=== PATIENT | female | born 1965 | race Caucasian/White ===

== ENCOUNTER 2021-02-03 14:30 | Outpatient (REF) | payer OTHER, SELFPAY | END 2021-02-03 14:31 | disposition home or self-care (01) | LOC: HO.HMGCLDS 14:30 | PROVIDERS: PCP Family Medicine; Visit Provider Family Medicine | DX: Z20.822 Contact with and (suspected) exposure to COVID-19 (principal); R05 Cough | CPT/HCPCS: C9803; U0003; U0005 ==

== ENCOUNTER 2024-11-07 07:16 | Outpatient (REF) | payer OTHER, SELFPAY ==
--- NOTE | ~2024-11-07 | CT_ITS ---
CLINICAL HISTORY: GENERALIZED ABD PAIN CT abdomen and pelvis with contrast Comparison: None Findings: The visualized portions of the lungs are normal in appearance. The liver is normal in size without suspicious focal hepatic lesions. Small hypodensities of the liver are statistically representing cyst or hemangioma. No intrahepatic or extrahepatic ductal dilatation is seen. The hepatic and portal veins are patent. Cholecystectomy. Pancreas, spleen and adrenals are normal in appearance. No suspicious focal lesion of the kidneys. No hydronephrosis or calculi. The abdominal aorta demonstrates no evidence of aneurysmal dilatation or dissection. The colon is normal in appearance and without wall thickening or inflammatory change. Moderate amount of fecal material within the colon. No evidence of bowel obstruction. Appendix is normal. The pelvic organs are within normal limits. No intraperitoneal free air or fluid is visualized. No pathologic lymphadenopathy is seen. Mild compression fracture of the T12 vertebral body. IMPRESSION: No acute findings. This document has been electronically signed by: Alana Carlson MD on 11/07/2024 15:33:58
[2024-11-07] MEDS: iohexoL 350 MG/ML 100 ML INFUS..BTL 85 ML IV (12:08)
[2024-11-07] MEDS: Barium Sulfate Oral (Berry) 450 ML ORAL.SUSP 900 ML PO (12:08)
== END 2024-11-07 07:17 | disposition home or self-care (01) ==
LOC: HO.CT 07:16
PROVIDERS: PCP Family Medicine
DX: R10.84 Generalized abdominal pain (principal)
CPT/HCPCS: 74177; Q9967

== ENCOUNTER → 2024-11-07 09:29 | Outpatient (BNV) | payer OTHER, SELFPAY | PROVIDERS: PCP Family Medicine; Visit Provider Nuclear Medicine | DX: R10.84 Generalized abdominal pain (principal) | CPT/HCPCS: 74177 ==